=== PATIENT | female | born 1965 | race Caucasian/White ===

== ENCOUNTER 2025-01-19 08:14 | Outpatient (AMB) | payer OTHER, SELFPAY ==
--- OUTSIDE RECORDS SUMMARY | 2025-01-19 09:19 | XMS_ITS | Encounter Summary ---
Author Organization [facility] Address [address] [place] [id number] Care Team Providers Care Supervisor [employer] Name Role Phone Micky Hernandez Primary Care Provider [phone] Wilmar Blackman MD Unavailable [phone] Encounter Details Date Type Department Care Team (Late st Contact Info) Description 05/21/2024 Scanned Document Orthopedic [address] [id number] Kira Villanueva [address] [place] [address] Social History Tobacco Use Types Packs/Day Years Used Date Smoking Tobacco: Never Assessed AUDIT-C Answer Date Recorded Q1: How often do you have a drink containing alcohol? Never 05/25/2024 Q2: How many drinks containi ng alcohol do you have on a typical day when you are drinking? Patient does not drink Q3: How often do you have si x or more drinks on one occasion? Never 05/25/2024 Comments Unknown Sex and Gender Information Value Date Recorded Sex Assigned at Female 05/28/2024 8:34 AM EST Legal Sex Female 11:29 AM EDT Gender Identity Female 02/17/2024 11:31 AM EDT Sexual Orientation Heterosexual (straight) 06/18 8:36 AM EST documented as of this encounter Plan of Treatment Upcoming Encounters Date Type Department Care Team (Late st Contact Info) Description 01/25/2025 1:00 PM EDT [facility] [address] [place], [place] [address] Brandy Taylor, OMID [address] [address] documented as of this encounter Visit Diagnoses Not on filedocumented in this encounter Care Teams Supervisor [employer] Relationship Specialty Start Date End Date Micky Hernandez [facility] [address] [place] [address] PCP - General Internal Medicine 05/06/24 Wilmar Blackman MD [address] [place] [address] [address] [place] [address] Surgery, Orthopedic 05/25/24 [facility] [address] [place] [address] Primary Care Provider 03/02/24 documented as of this encounter
--- OUTSIDE RECORDS SUMMARY | 2025-01-19 09:19 | XMS_ITS ---
Author Name [facility] Unknown Results Test Name/Text Value Interpretation Date Range Source POC Glucose 83.0 mg/dL Normal 06/18/2024 65 - 99 [facility] Result Not Detected Normal 05/29/2024 - [facility] Hgb A1c MFr Bld 4.7 % Normal 05/29/2024 - 5.[address] Est. average glucose Bld gHb Est-mCnc 88.0 mg/dL Normal 05/29/2024 [facility] Chloride SerPl-sCnc 104.0 mmol/L Normal 05/29/2024 98 - 1 07 [facility] Calcium SerPl-mCnc 9.7 mg/dL Normal 05/29/2024 8.7 - 10.5 [facility] Sodium SerPl-sCnc 140.0 mmol/L Normal 05/29/2024 136 - 14 5 [facility] CO2 SerPl-sCnc 25.0 mmol/L Normal 05/29/2024 22 - 33 HH CCT BUN SerPl-mCnc 10.0 mg/dL Normal 05/29/2024 8 - [address] Creat SerPl-mCnc 0.7 mg/dL Normal 05/29/2024 0.4 - 1.1 HH CCT BUN/Creat SerPl 14.0 Ratio Normal 05/29/2024 10 - 25 HH CCT Anion Gap Bld-sCnc 11.0 Normal 05/29/2024 7 - 17 [facility] Glucose SerPl-mCnc 86.0 mg/dL Normal 05/29/2024 65 - 99 [facility] GFR/BSA.pred SerPlBld WSQ-MBT-NeATqc >90.0 Normal 05/29/2024 59 - [facility] Potassium SerPl-sCnc 4.2 mmol/L Normal 05/29/2024 3.4 - 5 .3 [facility] Transferrin SerPl-mCnc 239.0 mg/dL Normal 05/29/2024 200 - 360 [facility] Prealb SerPl-mCnc 21.0 mg/dL Normal 05/29/2024 20 - 40 [facility] Platelet num Bld Auto 208.0 Thou/uL Normal 05/29/2024 150 - 450 [facility] MCH RBC Qn Auto 29.6 pg Normal 05/29/2024 27 - [address] Lymphocytes/leuk NFr Bld Auto 22.8 % Normal 05/29/2024 [facility] Imm Granulocytes num Bld Auto 0.03 Thou/uL Normal 05/29/2024 0 - 0.1 [facility] Hgb Bld-mCnc 11.5 g/dL Below low normal 05/29/2024 11.7 - 15 .7 [facility] PMV Bld Auto 12.9 fL Above high normal 05/29/2024 7.5 - 12 .5 [facility] RDW RBC Auto-Rto 12.4 % Normal 05/29/2024 11.5 - 14.5 [facility] Eosinophil/leuk NFr Bld Auto 1.5 % Normal 05/29/2024 [facility] Immature Platelet Fraction 12.0 % Above high normal 05/29/2024 1.2 - 8.6 [facility] WBC num Bld Auto 8.7 Thou/uL Normal 05/29/2024 4 - 11 [facility] Basophils/leuk NFr Bld Auto 1.1 % Normal 05/29/2024 [facility] Basophils num Bld Auto 0.1 Thou/uL Normal 05/29/2024 0 - 0.2 [facility] Neutrophils/leuk NFr Bld Auto 66.5 % Normal 05/29/2024 [facility] MCHC RBC Auto-mCnc 33.4 g/dL Normal 05/29/2024 30 - 36 [facility] MCV RBC Auto 88.0 fL Normal 05/29/2024 80 - 100 [facility] Neutrophils num Bld Auto 5.8 Thou/uL Normal 05/29/2024 2 - 7.5 [facility] Hct VFr Bld Auto 34.4 % Below low normal 05/29/2024 35 - 47 [facility] Eosinophil num Bld Auto 0.13 Thou/uL Normal 05/29/2024 0 - 0.7 [facility] Imm Granulocytes/leuk NFr Bld Auto 0.3 % Normal 05/29/2024 [facility] Monocytes/leuk NFr Bld Auto 7.8 % Normal 05/29/2024 [facility] RBC num Bld Auto 3.89 Mil/uL Below low normal 05/29/2024 4 - 5.4 [facility] Monocytes num Bld Auto 0.68 Thou/uL Normal 05/29/2024 0.2 - 1.5 [facility] Lymphocytes num Bld Auto 1.99 Thou/uL Normal 05/29/2024 1.5 - 4.5 [facility] History of Medication Use Medication Directions Dispensed Refills Start Date End Date [facility] acetaminophen (TYLENOL) 500 MG tablet Take 1 tablet (500 mg total) by mouth 4 times daily (every 6 hours) as needed for mild pain or moderate pain. 12/27/2024 active oxyCODONE (ROXICODONE) 5 MG immediate release tablet Take 1 tablet (5 mg total) by mouth 4 times daily (every 6 hours) as needed for severe pain. Max Daily Amount: 20 mg 12/27/2024 active acetaminophen (TYLENOL) 325 MG tablet Take 3 tablets (975 mg total) by mouth every 6 (six) hours. 06/19/2024 active aspirin enteric coated (ECOTRIN LOW STRENGTH) 81 MG EC tablet Take 1 tablet (81 mg total) by mouth 2 (two) times a day. No other aspirin products while in use. Resume aspirin products after completion. 06/19/2024 active meloxicam (MOBIC) 15 MG tablet Take 1 tablet (15 mg total) by mouth daily. 06/19/2024 active methocarbamol (ROBAXIN) 750 MG tablet Take 1 tablet (750 mg total) by mouth 4 (four) times a day as needed for muscle spasms. 06/19/2024 active oxyCODONE (ROXICODONE) 5 MG immediate release tablet Take 1-2 tablets (5-10 mg total) by mouth every 4 (four) hours as needed for moderate pain or severe pain. Max Daily Amount: 60 mg 06/19/2024 active PANTOprazole (PROTONIX) 40 MG EC tablet Take 1 tablet (40 mg total) by mouth every morning before breakfast. 06/19/2024 active polyethylene glycol (miraLAx) 17 g packet Take 1 packet (17 g total) by mouth daily as needed for constipation. 06/19/2024 active senna-docusate (SENNA-S) 8.6-50 MG Take 1 tablet by mouth daily. 06/19/2024 active estradiol (ESTRACE) 2 MG tablet Take 1 mg by mouth daily. 04/28/2024 active Semaglutide-Weight Management 2.4 MG/0.75ML Solution Auto-injector Inject 2.4 mg under the skin once a week. Saturdays04/12/2024 active diphenhydrAMINE (BENADRYL) 25 MG tablet Take 1 tablet (25 mg total) by mouth 4 times daily (every 6 hours) as needed for itching. active FLUoxetine (PROzac) 20 MG capsule Take 1 capsule (20 mg total) by mouth every evening. At 4 pm active valsartan (DIOVAN) 160 MG tablet Take 1 tablet (160 mg total) by mouth every morning. active Allergies Allergen Reaction Severity Comment Documented Date Source Statu s [facility] 05/28/2024 [facility] active AVOCADO ANGIOEDEMA [facility] PROANTHOCYANIDIN ITCHING [facility] Problems Problem Status Onset Date Problem Type Date of Resolution Source Anemia active ProblemAct CCT Morbid obesity active 2024-05-28 ProblemAct [facility] Sleep apnea active 2022-05-12 ProblemAct [facility] Osteoarthritis active 2024-06-18 ProblemAct [facility] CT Cavovarus deformity of foot active EncounterDiagnosisAct [facility] Hypertension active ProblemAct [facility] Encounters Encounter Type Encounter Reason Primary Diagnosis Location Date Ambulatory Pain [facility]25 Ambulatory MODIFY Congenital talip es calcaneovarus, unspecified foot [facility] [place] 01/03/2025 Amb[facility]07[facility]2024 [facility] 12/07/2024 Ambulatory Other acquired deformities of unspecified foot Other acquired deformities of unspecified foot [facility] 12[facility]07/2024 Amb[facility] 10/05/2024 Ambulatory Other acquired deformities of unspecified foot Other acquired deformities of unspecified foot [facility] 10/05/2024 Ambulatory [facility] 08/24/2024 Ambulatory Other acquired deformities of unspecified foot Other acquired deformities of unspecified foot [facility]24[facility]24 [facility] 07/27/2024 Ambulatory Other acquired deformities of unspecified foot Other acquired deformities of unspecified foot [facility] 07/27/2024 Ambulatory Other acquired deformities of unspecified foot Other acquired deformities of unspecified foot [facility] 07/15/2024 Ambulatory [facility] 07/06/2024 Ambulatory Other acquired deformities of unspecified foot Other acquired deformities of unspecified foot [facility] 07/06/2024 Ambulatory Other acquired deformities of unspecified foot Other acquired deformities of unspecified foot [facility] 06/22/2024 Ambulatory Congenital talipes calcaneovarus, unspecified foot Congenital talipes calcaneovarus, unspecified foot [facility] 06/18/2024 Ambulatory Encounter for other preprocedural examination Encounter for other preprocedural examination [facility] 05/28/2024 Ambulatory [facility] 04/27/2024 Ambulatory Pain in right foot Pain in right foot [facility] 04/27/2024 Ambulatory Pain in right foot Pain in right foot [facility] 03/02/2024 Care Team Organization Name Specialty Phone Email Start Date End Da te [facility] 12/08/2024 [facility] 10/05/2024 [facility] Micky Schulz [facility] 05/21/2024 [facility] 03/05/2024 [facility] NO PCP Primary Care 03/03/2024 [facility] Primary Care 03/02/2024 [facility] Primary Care 03/02/2024 [facility] 02/17/2024
--- OUTSIDE RECORDS SUMMARY | 2025-01-19 09:19 | XMS_ITS | Patient Health Record ---
Author Organization [facility] Address [address] [place] [address] Care Team Providers Care Cable Armorer Operator Name Role Phone Micky Hernandez MD Primary Care Provider Eliza Cleveland Unavailable [phone] Allergies Allergen (clinical drug ingredient) Drug/Non Drug Allergy documented on EMR Reaction Allergy Type Onset Date Status Shrimp Flavor Unknown Drug Allergy Act [facility] Adhesive Unknown Allergy Active Reason For Referral No Information Medications Medication SIG (Take, Route, Fr equency, Duration) Notes Start Date End Date Status amLODIPine Besylate Active Physical Therapy . . B/L equinus, pes c avus, difficulty walking 2-3x/week 02/16/2024 Act k[facility] Fluoxetine Active Social History Tobacco Use: Social History Observation Description Date Details (start date - stop date) Former Smoker NA - NA Tobacco Use/Smoking Question Answer Notes Are you a: former smoker Additional Findings: Tobacco Non-User Current no n-smoker Alcohol Screen Question Answer Notes Did you have a drink containing alcohol in the p ast year? No Points 0 Interpretation Negative Tobacco use other than smoking: Question Answer Notes Are you an other tobacco user? 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) (2254366065301120 1) Congenital pes cavus, right foot (Q66.71) Active confirmed Problem Congenital pes cavus of left foot (disorder) (6160571780204122 7) Congenital pes cavus, left foot (Q66.72) Active confirmed Problem Spasm (50310273) Gastrocnemius equinus of left lower extremity (M62.462) Active confirmed Problem Tightness of right gastrocnemius muscle (finding) (4890824255396319 6) Gastrocnemius equinus of right lower extremity (M62.461) Active confirmed Vital Signs Height 5 ft 1 in in 02/16/2024 Weight 225 lbs 02/16/2024 BMI 42.51 kg/m2 02/16/2024 Encounters Encounter Location Date Provider Diagnosis [address] [address] 02/16/2024 Eliza Leone Pain in left foot M79.672 ; Congenital pes cavus, right foot Q66.71 ; Pain in left ankle and joints of left foot M25.572 ; Bursitis of intermetatarsal bursa of left foot M77.52 ; Metatarsalgia of left foot M77.42 ; Pain in right foot M79.671 ; Pain in right ankle and joints of right foot M25.571 ; Bursitis of intermetatarsal bursa of right foot M77.51 ; Metatarsalgia, right foot M77.41 ; Congenital pes cavus, left foot Q66.72 ; Gastrocnemius equinus of right lower extremity M62.461 and Gastrocnemius equinus of left lower extremity M62.462 [facility] [address] [place] [address] 02/16/2024 Eliza Leone Assessments Encounter Date Diagnosis (ICD Code) Assessment Notes Treatment Notes Treatment Clinical Notes Section Notes 02/16/2024 Pain in left foot (ICD-10 - M79.672) 02/16/2024 Congenital pes cavus, right foot (ICD-10 - Q66.71) 02/16/2024 Pain in left ankle and joints of left foot (ICD-10 - M25.572) 02/16/2024 Bursitis of intermetatarsal bursa of left foot (ICD-10 - M77.52) 02/16/2024 Metatarsalgia of left foot (ICD-10 - M77.42) 02/16/2024 Pain in right foot (ICD-10 - M79.671) 02/16/2024 Pain in right ankle and joints of right foot (ICD-10 - M25.571) 02/16/2024 Bursitis of intermetatarsal bursa of right foot (ICD-10 - M77.51) 02/16/2024 Metatarsalgia, right foot (ICD-10 - M77.41) 02/16/2024 Congenital pes cavus, left foot (ICD-10 - Q66.72) 02/16/2024 Gastrocnemius equinus of right lower extremity (ICD-10 - M62.461) 02/16/2024 Gastrocnemius equinus of left lower extremity (ICD-10 - M62.462) Plan Of Treatment Pending Test Test Name Order Date X ray : Foot, left 3V 02/16/2024 X ray : Foot, right 3V 02/16/2024 Insurance Providers Payer Name Payer Address Payer Phone Subscriber Number Group Number Insured Name Patient Relationship to Insured Coverage Start Date Coverage End Date [facility] [address] [place] [address] [phone] [id number] Kait Oglesby Self - patient is the insured Medical (General) History Medical History History ICD Code Anxiety Hypertension Surgical History Surgery Date(Month/Year) hammer toe 1995 feet tendon 2001
--- OUTSIDE RECORDS SUMMARY | 2025-01-19 09:19 | XMS_ITS | Encounter Summary ---
Author Organization [facility] Address [address] [place] [address] Care Team Providers Care Core Man Name Role Phone MaryMicky Primary Care Provider [phone] Wilmar Blackman MD Unavailable [phone] Encounter Details Date Type Department Care Team (Late st Contact Info) Description 01/03/2025 Scanned Document [facility] [place] [address] Wilmar Blackman MD [address] [place] [address] Social History Tobacco Use Types Packs/Day Years Used Date Smoking Tobacco: Never Smokeless Tobacco: Never Alcohol Use Standard Drinks/Week Comments Never 0 (1 standard drink = 0.6 oz pur e alcohol) AUDIT-C Answer Date Recorded Q1: How often [...] 1:00 PM EDT [facility] [address] [address] Brandy aTylor APRN [address] [address] documented as of this encounter Visit Diagnoses Not on filedocumented in this encounter Care Teams Core Man Relationship Specialty Start Date End Date Micky Hernandez [phone] [address] PCP - General Internal Medicine 05/06/24 Wilmar Blackman MD [address] [address] Surgery, Orthopedic 05/25/24 [facility] [address] [place] [address] Primary Care Provider 03/02/24 documented as of this encounter
--- OUTSIDE RECORDS SUMMARY | 2025-01-19 09:19 | XMS_ITS | Clinical Summary ---
Author Organization [facility] Address [address] [place] [address] Care Team Providers Care Waterworks Chief Engineer Name Role Phone Micky Hernandez Primary Care Provider [phone] Wimlar Blackman MD Unavailable [phone] Allergies Active Allergy Reactions Criticality Noted Date Comments Avocado Angioedema High 05/28/2024 Proanthocyanidin Itching Low 05/28/2024 Kiwi Itching Low 05/28/2024 Nuts Angioedema High 05/28/2024 Oranges Itching Low 05/28/2024 Shrimp Itching Low 05/28/2024 Strawberries Itching Low 05/28/2024 Medications estradiol (ESTRACE) 2 MG tablet Take 1 mg by mouth daily. 04/28/20 24 Active FLUoxetine (PROzac) 20 MG capsule Take 1 capsule (20 mg total) by mouth every evening. At 4 pm Active Semaglutide-We ight Management 2.4 MG/0.75ML Solution Auto-injector Inject 2.4 mg under the skin once a week. Saturdays04/12/20 24 Active valsartan (DIOVAN) 160 MG tablet Take 1 tablet (160 mg total) by mouth every morning. Active diphenhydrAMIN E (BENADRYL) 25 MG tablet Take 1 tablet (25 mg total) by mouth 4 times daily (every 6 hours) as needed for itching. Active methocarbamol (ROBAXIN) 750 MG tabletIndicati ons:Cavovarus deformity of foot Take 1 tablet (750 mg total) by mouth 4 (four) times a day as needed for muscle spasms. 25 tablet 06/19/19 25 Active polyethylene glycol (miraLAx) 17 g packetIndicati ons:Cavovarus deformity of foot Take 1 packet (17 g total) by mouth daily as needed for constipation. 06/19/19 25 Active PANTOprazole (PROTONIX) 40 MG EC tabletIndicati ons:Cavovarus deformity of foot Take 1 tablet (40 mg total) by mouth every morning before breakfast. 14 tablet 06/19/19 25 Active senna-docusate (SENNA-S) 8.6-50 MGIndications: Cavovarus deformity of foot Take 1 tablet by mouth daily. 06/19/19 25 Active meloxicam (MOBIC) 15 MG tabletIndicati ons:Cavovarus deformity of foot Take 1 tablet (15 mg total) by mouth daily. 21 tablet 1 10/06/19 25 Active acetaminophen (TYLENOL) 500 MG tabletIndicati ons:Cavovarus deformity of foot Take 1 tablet (500 mg total) by mouth 4 times daily (every 6 hours) as needed for mild pain or moderate pain. 84 tablet 12/28/19 25 Active aspirin enteric coated (ECOTRIN LOW STRENGTH) 81 MG EC tabletIndicati ons:Cavovarus deformity of foot Take 1 tablet (81 mg total) by mouth 2 times a day. With Food Post op 42 tablet 12/28/19 25 Active oxyCODONE (ROXICODONE) 5 MG immediate release tabletIndicati ons:Cavovarus deformity of foot Take 1 tablet (5 mg total) by mouth 4 times daily (every 6 hours) as needed for severe pain. Max Daily Amount: 20 mg 28 tablet 12/28/19 25 Active acetaminophen (TYLENOL) 325 MG tabletIndicati ons:Cavovarus deformity of foot Take 3 tablets (975 mg total) by mouth every 6 (six) hours. 168 tablet 06/19/19 25 025 Discontinued aspirin enteric coated (ECOTRIN LOW STRENGTH) 81 MG EC tabletIndicati ons:Cavovarus deformity of foot Take 1 tablet (81 mg total) by mouth 2 (two) times a day. No other aspirin products while in use. Resume aspirin products after completion. 42 tablet 06/19/19 25 025 Discontinued oxyCODONE (ROXICODONE) 5 MG immediate release tabletIndicati ons:Cavovarus deformity of foot Take 1-2 tablets (5-10 mg total) by mouth every 4 (four) hours as needed for moderate pain or severe pain. Max Daily Amount: 60 mg 45 tablet 06/19/19 25 025 Discontinued Active Problems Problem Noted Date Diagnosed Date Osteoarthritis 06/18/2024 Morbid obesity 05/28/2024 Assessment & Plan (05/28/2024 1:06 PM EST): BMI 40. Patient takes Semaglutide on DAY. Instructions for preoperative clear liquid diet given. Sleep apnea 05/12/2022 Overview (05/28/2024): cpap compliant Assessment & Plan (05/28/2024 1:04 PM EST): ? CPAP Cavovarus deformity of foot Overview (05/28/2024): right Hypertension Assessment & Plan (05/28/2024 1:04 PM EST): ? Controlled. Patient instructed to hold valsartan the day of surgery. Anemia Overview (05/28/2024): used to take iron, not since 2020 Assessment & Plan (05/28/2024 1:04 PM EST): JANA? Details? Encounters Date Type Department Care Team Description 01/11/2025 2:00 PM EDT Office Visit [facility] [address] [id number] Wilmar Blackman MD Cavovarus deformity of foot (Primary Dx) 01/03/2025 Scanned Document [facility] [address] [address] Wilmar Blackman MD 12/27/2024 Orders Only [facility] [address] [id number] Brandy Taylor APRN Cavovarus deformity of foot (Primary Dx) 12/07/2024 2:05 PM EDT Ancillary Procedure [facility] [address] [address] 12/07/2024 1:15 PM EDT Ancillary Procedure [facility] [address] [address] 12/07/2024 1:00 PM EDT Office Visit [facility] [address] [address] Wilmar Blackman MD Cavus deformity of foot, acquired (Primary Dx); Right ankle pain, unspecified chronicity 12/07/2024 CC Surg Order [facility] [address] [address] Wilmar Blackman MD Pain due to bone fixation device, initial encounter (Primary Dx); Cavovarus deformity of foot from Last 3 Months Social History Tobacco Use Types Packs/Day Years Used Date Smoking Tobacco: Never Smokeless Tobacco: Never Tobacco Cessation:Counseling Given: Not Answered Alcohol Use Standard Drinks/Week Comments Never 0 [...] Orientation Heterosexual (straight) 06/18 8:36 AM EST Last Filed Vital Signs Vital Sign Reading Time Taken Comments Blood Pressure 135/66 06/19/2024 1:15 PM EST Pulse 85 06/19/2024 1:15 PM EST Temperature 35.9 C (96.6 F) 06/19/2024 1:15 PM EST Respiratory Rate 16 06/19/2024 1:15 PM EST Oxygen Saturation 96% 06/19/2024 1:15 PM EST Inhaled Oxygen Concentration - - Weight 96.2 kg (212 lb) 06/18/2024 6:45 PM EST Height 157.5 cm (5' 2 ) 06/18/2024 6:45 PM EST Body Mass Index 38.78 06/18/2024 6:45 PM EST Plan of Treatment Upcoming Encounters Date Type Department Care Team (Late st Contact Info) Description 01/25/2025 1:00 PM EDT [facility] Visit [facility] [address] [place] [address] Brandy Taylor, OMID [facility] [address] [place] [address] Health Maintenance Due Date Last Done Comments Hepatitis C Virus Screening 1965 HIV Screening 11/15/1980 DTaP/Tdap/Td Vaccines (1 - Tdap) 11/15/1986 Hepatitis B Vaccines (1 of 3 - 19+ 3-dose series) 11/15/1986 Pap Smear (Ages 21-65) 11/15/1988 Mammogram 2007 Colonoscopy 11/15/2012 Pneumococcal Vaccines 50+ (1 of 1 - PCV) 11/15/2017 Zoster (Shingles) Vaccine (1 of 2) 11/15/2017 Influenza Vaccine 12/10/2024 03/20/2023, , 03/05/2022, Additional history exists COVID-19 Vaccine (2024-2 6 season) 2025 08/29/2021, 04/03/2021, 09/22/2020, Additional history exists Medical Devices Implanted Type Area Lease Administration Supervisor Device Identifier Shelf Expiration Date Model / Serial / Lot [id number] Filler Bone Void 5cc Dbx Algrf Putty Frzdr - [id number] Implanted:Qty: 1 on 06/18/2024 by Wilmar Blackman MD at [facility] Void Filler Right: Foot [employer] 01/15/2026 [id number] / [id number] / [id number] 7.4x75mm Headless Comp Implanted:Qty: 1 on 06/18/2024 by Wilmar Blackman MD at [facility] Right: Foot [employer] 06/12/2029-0 75S / / [id number] 7.4 X 80mm Screw Implanted:Qty: 1 on 06/18/2024 by Wilmar Blackman MD at [facility] Right: Foot [employer] 02/09/2029 [id number] 80S / / [id number] 5.6 X30mm Headless Screw Implanted:Qty: 1 on 06/18/2024 by Wilmar Blackman MD at [facility] Right: Foot [employer] 12/11/2027 F1-1656-0 30S / / [id number] 5.6 X42mm Headless Screw Implanted:Qty: 1 on 06/18/2024 by Wilmar Blackman MD at [facility] Right: Foot [employer] 01/10/2029 F1-1656-0 42S / / [id number] Compresion Staple 15x15 Implanted:Qty: 1 on 06/18/2024 by Wilmar Blackman MD at [facility] Right: Foot [employer] 05/12/2030 [id number] / / [id number] Procedures Procedure Name Priority Date/Time Associated Diagnosis Comments XR ANKLE 2 VIEWS-RIGHT Routine 12/07/2024 2:10 PM EDT Right ankle pain, unspecified chronicity XR FOOT 3+ VIEWS-RIGHT Routine 12/07/2024 1:41 PM EDT Cavus deformity of foot, acquired from Last 3 Months Results * XR Ankle 2 views-Right (12/07/2024 2:10 PM EDT) Narrative OA - 12/07/2024 2:10 PM EDT This exam was performed in office at [facility] and images reviewed by orthopedic provider. Any findings are documented within ambulatory encounter note on date of service. Wilmar Blackman MD IMG DIAGNOSTIC IMAGING ORDERA BLES Final Result OA * XR Foot 3+ views-Right (12/07/2024 1:41 PM EDT) Narrative [facility] - 12/07/2024 1:42 PM EDT This exam was performed in office at [facility] and images reviewed by orthopedic provider. Any findings are documented within ambulatory encounter note on date of service. Wilmar Blackman MD IMG DIAGNOSTIC IMAGING ORDERA BLES Final Result OA from Last 3 Months Insurance [facility] Advance Directives * Full Code (Latest Code Status on File) Date Activated Date Inactivated Comments 06/18/2024 6:31 PM * Full Code Date Activated Date Inactivated Comments 06/18/2024 8:47 AM 06/18/2024 6:31 PM Care Teams Waterworks Chief Engineer Relationship Specialty Start Date End Date Micky Hernandez [address] [address] PCP - General Internal Medicine 05/06/24 Wilmar Blackman MD [address] [place] [id number] Surgery, Orthopedic 05/25/24 [facility] [address] [place] [address] Primary Care Provider 03/02/24
--- OUTSIDE RECORDS SUMMARY | 2025-01-19 09:19 | XMS_ITS | Continuity of Care Document ---
Author Organization [facility] Address [address] [place] [id number] Insurance Providers Payer Plan Claims Address Claims Phone Policy Number Group Number Relation Employer Guarantor Name Guarantor Guarantor Address Guarant[place] [address] [id number] Self lamberto hammonds 1965 [address] [place] [address] [facility]in Blancas [facility], [address], [place] [address] tel:[phone] [id number] Self lamberto hammonds 1965 [address] [place] [address] Problems Condition ICD9 code ICD10 code SNOMED code Start Date End Date S tatus Encounter for screening for other metabolic disorders Z13.228 Results No Results Allergies, adverse reactions, alerts No known allergies and adverse reactions Medications No administered medications reported Vital Signs No vital signs reported Social History No smoking Hx information available
--- OUTSIDE RECORDS SUMMARY | 2025-01-19 09:19 | XMS_ITS | Encounter Summary ---
Author Organization [facility] Address [address] [place] [address] Care Team Providers Care Ccie Name Role Phone Pcp, No Primary Care Provider Unavailabl e Micky Hernandez Primary Care Provider [phone] Wilmar Blackman MD Unavailable [phone] Encounter Details Date Type Department Care Team (Late st Contact Info) Description 03/10/2024 [place] [address] Wilmar Blackman MD [address] [place] [address] Social History Tobacco Use Types Packs/Day Years Used Date Smoking Tobacco: Never Assessed Comments Unknown Sex and Gender Information Value [...] 01/25/2025 1:00 PM EDT [place] [address] Brandy Taylor APRN [address] [address] documented as of this encounter Visit Diagnoses Not on filedocumented in this encounter Care Teams Ccie Relationship Specialty Start Date End Date Pcp, No PCP - General General Medicine 03/02/24 05/05/24 Micky Hernandez [address] [facility] [address] [place] [address] PCP - General Internal Medicine 05/06/24 Wilmar Blackman MD [address] [place] [address] [place] [address] Surgery, Orthopedic 05/25/24 [facility] [address] [place] [address] Primary Care Provider 03/02/24 documented as of this encounter
--- NOTE | 2025-01-19 10:47 | A.OFFVIS_ITS ---
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*: Details: Start time: 10.40am, End time: 11.18am ?I spent 33 minutes speaking with the patient on the phone plus an additional 5 minutes reviewing and updating records for a total of 38 minutes HPI Comments Details: Previous weight loss efforts: Wegovy for 6months to 2.4mg: lost 10 lbs Wakes up: 7am, Sleeps: 11pm Breakfast: skips Lunch: 12pm (plantains, rice, pasta) Dinner: 6pm (as lunch, soups, salads) Snacks: 8pm (chocolate) Exercise: has home treadmill that tracks calories Beverages: Coffee: (2 cups/d with cream), Tea: <1/wk, Soda: none, Juice: Cranberry juice occasionally, ETOH: none PFSH Medical History (Updated 01/19/25 @ 10:51 by Eamon Howard MD) Anxiety Depression Sleep apnea treated with continuous positive airway pressure (CPAP) Hypertension Morbid obesity Surgical History (Updated 11/02/24 @ 13:36 by Gillian Moore CMA) Hx of bladder repair surgery Hx of foot surgery Family History (Updated 11/02/24 @ 13:37 by Gillian Moore CMA) Mother Diabetes Hypertension Kidney problem Asthma Father No problems noted. Son No problems noted. Son No problems noted. Daughter Hypertension Social History (Updated 11/02/24 @ 13:37 by Gillian Moore CMA) Alcohol intake: never Patient Tobacco Use Status: Never used Tobacco Telehealth Telehealth Telehealth Platform: Telephone Location of provider rendering services: practice address Location of patient: address on file Patient Identification confirmed using: Name, : Yes Telehealth method: voice only Patient verbally consented to treatment: Yes Patient verbally consented to billing insurance company: Yes Patient informed of any privacy concerns related to visit: Yes Minutes spent on Phone/Video with Pt.: 38 Assessment & Plan Assessment & Plan (1) Morbid obesity: Code(s): E66.01 - Morbid (severe) obesity due to excess calories Category: Medical Plan: 1.? Plan for lap sleeve gastrectomy. If diaphragmatic or ventral hernias are present at time of surgery, these will be repaired laparoscopically as well. I emphasized the importance of close follow-up, adherence to instructions and good communication. The surgery does not replace the need to change your lifestlyle which is the cause of the obesity problem. The surgery provides the motivation to try again to change your lifestyle, it reduces the appetite and make the transition to a better lifestyle easier and doubles the amount of weight you would lose compared to doing the lifestyle change without the surgery. You will need to be on a liquid diet with protein shakes for 2 weeks before surgery to maximize weight loss and boost your nutritional status to recover better from surgery and also for the first two weeks after surgery to let the stomach heal before we introduce other foods. After the first 2 weeks we will introduce protein bars and soft foods like scrambled eggs, cottage cheese and yogurt and after the 6th week will introduce meat, fish and cooked vegetables in small amounts. Over time you should be able to eat everything in small amounts. Side effects like nausea, vomiting, heartburn or abdominal pain are not common in the practice unless you are not following in the practice. This operation requires lifetime commitment to following in our practice and communication with me. You will much less weight and experience side effects if you don?t communicate or not following in the practice. Complications are rare and in our practice is about 1/10 of the national average. However, you can develop bleeding that may require transfusion (hasn?t happened for year in the practice), you may from complications (we did not have any deaths in the practice) and infections. Infections are usually a result of breakdown in communication or not understanding or following directions correctly. They are difficult to treat, they can happen during the first 6 weeks, they may require to be in the hospital for weeks or even months, not being able to eat by mouth and you may have drains and surgeries to try and correct the issue. Other risks and complications include possible conversion to an open procedure, leaks, small bowel obstruction, blood clots, cardiac, or pulmonary complications, as residential complications such as ulcers, insufficient weight loss and vitamin deficiencies. 2. Nutritional counseling. Start with one premade PREMIER protein (buy at [employer] or [employer]) shake (mix 4oz of Premier mixed with 4oz low fat unsweetened almond milk each) at 8am-10am, one protein bar (Fit Crunch protein bar, buy at [employer], or [employer]) at 11am-1pm, another premade PREMIER protein shake (mix 4oz of Premier mixed with 4oz low fat unsweetened almond milk each) at 2pm-4pm, dinner at 5pm (8 forks of protein and 8 forks of salad/vegetables) and one more another [employer]unch protein bar at 7pm-9pm. So you do 2 protein shakes, 2 protein bars and one meal per day. Meal to include lean meat (beef, fish, pork, turkey, chicken), or azeri yogurt, or egg whites, or beans with a salad with olive oil and fruits (berries, pears, apples, kiwi). Avoid salt, breads, potatoes, rice, pasta, desserts. 3. Each shake would be drunk slowly, like coffee in a period of 2 hours. 4. Cut each bar in 4 pieces and eat each piece in 30min ?to make each bar last 2 hours. 5. I emphasized the importance of measuring accurately the food portion and measure it when serving the food in plate 6. The meal portions include 8 full-size forks of meat and 8 full-size forks of salad. You always eat the meat portion but you can replace up to 4 forks for salad/vegetables with rice, potatoes or pasta, or a fruit ?if you like. The less you do it the better weight loss will be. 7. One full-size fork is what it can be scooped on the fork without falling aside and not what can be bit with the fork. Use regular forks like those you find in a typical restaurant. 8.? Please buy the body composition scale we discussed and send me weight measurements as soon as possible and then once a week. Always include your diet and exercise plan. 9. Start treadmill at speed of 3.0 and do erickson for 300 calories. Goal is to burn 2000 calories per week on exercise, which means either 300 calories daily. 10. Goal is to lose at least 1.5-2lbs per week 11. Goal to lose 10% of your weight before surgery, which is about 23lbs. Ultimate weight goal: 200lbs before surgery 12. Please follow the diet plan exactly without any change. If you don't like something about the plan or you feel hungry you need to communicate with me so I can help you revise the plan. You should not change the plan yourself 13. To be scheduled for EGD to assess the stomach's anatomy. The possibility of biopsies was discussed. Patient needs to avoid use of NSAIDs and aspirin for 1 week prior to EGD. You must be on liquids only the day before your endoscopy. Risks of perforation and bleeding was discussed with the patient. This will be an outpatient procedure with IV sedation. Orders: Orders Hemoglobin A1c Today E66.01 - Morbid (severe) obesity due to excess calories, G47.30 - Sleep apnea, unspecified, I10 - Essential (primary) hypertension H Pylori Breath Test Today E66.01 - Morbid (severe) obesity due to excess calories, G47.30 - Sleep apnea, unspecified, I10 - Essential (primary) hypertension IRON PROFILE Today E66.01 - Morbid (severe) obesity due to excess calories, G47.30 - Sleep apnea, unspecified, I10 - Essential (primary) hypertension Vitamin B12 and Folate Today E66.01 - Morbid (severe) obesity due to excess calories, G47.30 - Sleep apnea, unspecified, I10 - Essential (primary) hypertension Zinc Today E66.01 - Morbid (severe) obesity due to excess calories, G47.30 - Sleep apnea, unspecified, I10 - Essential (primary) hypertension C Reactive Protein Today E66.01 - Morbid (severe) obesity due to excess calories, G47.30 - Sleep apnea, unspecified, I10 - Essential (primary) hypertension Vitamin A Today E66.01 - Morbid (severe) obesity due to excess calories, G47.30 - Sleep apnea, unspecified, I10 - Essential (primary) hypertension TSH reflex Free T4 Today E66.01 - Morbid (severe) obesity due to excess calories, G47.30 - Sleep apnea, unspecified, I10 - Essential (primary) hypertension Vitamin D 25-OH Total Today E66.01 - Morbid (severe) obesity due to excess calories, G47.30 - Sleep apnea, unspecified, I10 - Essential (primary) hypert ension US abdomen comp w elastography Today E66.01 - Morbid (severe) obesity due to excess calories, G47.30 - Sleep apnea, unspecified, I10 - Essential (primary) hypertension XR chest 2V Today E66.01 - Morbid (severe) obesity due to excess calories, G47.30 - Sleep apnea, unspecified, I10 - Essential (primary) hypertension Insulin Today E66.01 - Morbid (severe) obesity due to excess calories, G47.30 - Sleep apnea, unspecified, I10 - Essential (primary) hypertension Complete Blood Count Auto Diff Today E66.01 - Morbid (severe) obesity due to excess calories, G47.30 - Sleep apnea, unspecified, I10 - Essential (primary) hypertension Lipid Panel Today E66.01 - Morbid (severe) obesity due to excess calories, G47.30 - Sleep apnea, unspecified, I10 - Essential (primary) hypertension Comprehensive Met. Panel Today E66.01 - Morbid (severe) obesity due to excess calories, G47.30 - Sleep apnea, unspecified, I10 - Essential (primary) hypertension Vitamin B1 Today E66.01 - Morbid (severe) obesity due to excess calories, G47.30 - Sleep apnea, unspecified, I10 - Essential (primary) hypertension Ferritin Today E66.01 - Morbid (severe) obesity due to excess calories, G47.30 - Sleep apnea, unspecified, I10 - Essential (primary) hypertension ECG 12 lead EKG Today E66.01 - Morbid (severe) obesity due to excess calories, G47.30 - Sleep apnea, unspecified, I10 - Essential (primary) hypertension FL upper GI w air Today E66.01 - Morbid (severe) obesity due to excess calories, G47.30 - Sleep apnea, unspecified, I10 - Essential (primary) hypertension Referrals Nutrition/Dietitian Referral E66.01 - Morbid (severe) obesity due to excess calories, G47.30 - Sleep apnea, unspecified, I10 - Essential (primary) hypertension Behavioral Health Referral E66.01 - Morbid (severe) obesity due to excess calories, G47.30 - Sleep apnea, unspecified, I10 - Essential (primary) hypertension
[2025-01-19 10:55] VITALS: BMI 42.2
== END 2025-01-19 11:19 | disposition home or self-care (01) ==
LOC: HO.HBS 08:14
PROVIDERS: PCP Internal Medicine; Visit Provider Surgery
DX: E66.01 Morbid (severe) obesity due to excess calories (principal)
CPT/HCPCS: 99203

== ENCOUNTER 2025-01-21 08:53 | Outpatient (REF) | payer OTHER, SELFPAY ==
--- NOTE | ~2025-01-21 | XR_ITS ---
EXAMINATION: XR CHEST CLINICAL INFORMATION: E66.01 - Morbid (severe) obesity due to excess calories COMPARISON: None available. TECHNIQUE: 2 views of the chest were obtained. FINDINGS: No significant abnormality is noted involving the heart, lungs, mediastinum, bony thorax or soft tissues. Heart size is at the upper limits. XR/XR chest 2V IMPRESSION: No acute disease. Electronically signed by: Tino Garcia MD 01/21/2025 09:36 AM EDT
--- NOTE | 2025-01-21 08:59 | ECG_ITS ---
Test Reason : E66.01 - Morbid (severe) obesity due to excess calories Blood Pressure : */* mmHG Vent. Rate : 66 BPM Atrial Rate : 66 BPM P-R Int : 144 ms QRS Dur : 102 ms QT Int : 414 ms P-R-T Axes : 41 45 43 degrees QTcB Int : 434 ms Normal sinus rhythm Incomplete right bundle branch block Nonspecific T wave abnormality Abnormal ECG No previous ECGs available Referred By: Eamon Howard Electronically Signed By: TALA IBARRA MD
[2025-01-21 09:13] LABS: MANUAL DIFF FLAG NO
[2025-01-21 09:39] LABS: Hematocrit 32.0 % (37.0-47.0); Hemoglobin 10.8 g/dl (12.0-16.0); Imm Gran Abs Auto 0.04 X10*3/uL (0.00-0.03); Imm Gran Pct Auto 0.6 % (0.0-0.4); Lymphocytes Absolute Auto 2.4 X10*3/uL (1.2-4.9); Mean Corpuscular HGB Conc 33.8 g/dl (31.0-35.0); Mean Corpuscular Hemoglobin 29.4 pg (27.0-33.0); Mean Corpuscular Volume 87.2 fL (80.0-98.0); NRBC Abs Auto 0.000 X10*3/uL (0.0-0.012); NRBC Pct Auto 0.0 /100WBC (0.0-0.2); Platelet Count 207 X10*3/uL (160-400); Red Blood Count 3.67 X10*6/uL (4.20-5.50); White Blood Count 7.1 X10*3/uL (4.8-10.8)
--- OUTSIDE RECORDS SUMMARY | 2025-01-21 09:44 | XMS_ITS | Clinical Summary ---
Author Organization [facility] Address [address] [place] [address] Care Team Providers Care Natural Sciences Professor Name Role Phone Micky Hernandez Primary Care Provider [phone] Wilmar Blackman MD Unavailable [phone] Allergies Active Allergy Reactions Criticality Noted [...] 2:00 PM EDT [facility] Visit [facility] [address] 7[address] Wilmar Blackman MD Cavovarus deformity of foot (Primary Dx) 01/03/2025 Scanned Document [facility] [address] [address] Wilmar Blackman MD 12/27/2024 Orders Only [facility] [address] [id number] Brandy Taylor APRN Cavovarus deformity of foot (Primary Dx) 12/07/2024 2:05 PM EDT Ancillary Procedure [facility] [address] [address] 12/07/2024 1:15 PM EDT Ancillary Procedure [facility] [address] [address] 12/07/2024 1:00 PM EDT [facility] Visit [facility] [address] [address] Wilmar Blackman MD Cavus deformity of foot, acquired (Primary Dx); Right ankle pain, unspecified chronicity 12/07/2024 CC Surg Order [facility] [address] [address] Wilmar Blackman MD Pain due to bone [...] PM EDT [facility] Visit [facility] [address] [place] [address] Brandy Taylor, OMID [facility] [address] [place] [address] Health Maintenance Due Date Last Done Comments [...] history exists Medical Devices Implanted Type Area Railroad Surveyor Device Identifier Shelf Expiration Date Model / Serial / Lot [id number] Filler Bone Void 5cc Dbx Algrf Putty Frzdr - [id number] Implanted:Qty: 1 on 06/18/2024 by Wilmar Blackman MD at [facility] Void Filler Right: Foot [employer] 01/15/2026 [id number] / [id number] / [id number] 7.4x75mm Headless Comp Implanted:Qty: 1 on 06/18/2024 by Wilmar Blackman MD at [facility] Right: Foot [employer] 06/12/2029-0 75S / / [id number] 7.4 X 80mm Screw Implanted:Qty: 1 on 06/18/2024 by Wilmar Blackman MD at [facility] Right: Foot [employer] 02/09/2029 F1-1974-0 80S / / [id number] 5.6 X30mm Headless Screw Implanted:Qty: 1 on 06/18/2024 by Wilmar Blackman MD at [facility] Right: Foot [employer] 12/11/2027 F1-1656-0 30S / / [id number] 5.6 X42mm Headless Screw Implanted:Qty: 1 on 06/18/2024 by Wilmar Blackman MD at [facility] Right: Foot [employer] 01/10/2029 F1-1656-0 42S / / [id number] Compresion Staple 15x15 Implanted:Qty: 1 on 06/18/2024 by Wilmar Blackman MD at [facility] Right: Foot [employer] 05/12/2030 [id number] / / [id number] Procedures Procedure Name Priority Date/Time Associated Diagnosis [...] performed in office at [facility] and images reviewed by orthopedic provider. Any findings are documented within ambulatory encounter note on date of service. Wilmar Blackman MD IMG DIAGNOSTIC IMAGING ORDERA BLES Final Result OA * XR Foot 3+ views-Right (12/07/2024 1:41 PM EDT) Narrative [facility] - 12/07/2024 1:42 PM EDT This exam was performed in office at [facility] and images reviewed by orthopedic provider. Any findings are documented within ambulatory encounter note on date of service. Wilmar Blackman MD IMG DIAGNOSTIC IMAGING ORDERA BLES Final Result OA from Last 3 Months Insurance [facility] Advance Directives * Full Code (Latest Code Status on File) Date Activated Date Inactivated Comments 06/18/2024 6:31 PM * Full Code Date Activated Date Inactivated Comments 06/18/2024 8:47 AM 06/18/2024 6:31 PM Care Teams Natural Sciences Professor Relationship Specialty Start Date End Date Micky Hernandez [address] [address] PCP - General Internal Medicine 05/06/24 Wilmar Blackman MD [address] [place] [address] Surgery, Orthopedic 05/25/24 [facility] [address] [place] [address] Primary Care Provider 03/02/24
--- OUTSIDE RECORDS SUMMARY | 2025-01-21 09:44 | XMS_ITS | Encounter Summary ---
Author Organization [facility] Address [address] [place] [address] Care Team Providers Care Wine Fermenter Name Role Phone Micky Hernandez Primary Care Provider [phone] Wilmar Blackman MD Unavailable [phone] Encounter Details Date Type Department Care Team (Late st Contact Info) Description 05/21/2024 Scanned Document [facility] [address] [id number] Kira Villanueva [address] [place] [address] Social History Tobacco Use Types Packs/Day Years [...] 1:00 PM EDT [facility] Visit [facility] [address] [place], [place] [address] Brandy Taylor, OMID [address] [address] documented as of this encounter Visit Diagnoses Not on filedocumented in this encounter Care Teams Wine Fermenter Relationship Specialty Start Date End Date Micky Hernandez [facility] 2 [place] [address] PCP - General Internal Medicine 05/06/24 Wilmar Blackman MD [address] [place] [address] 100 [place] [address] Surgery, Orthopedic 05/25/24 [facility] [address] [place] [address] Primary Care Provider 03/02/24 documented as of this encounter
--- OUTSIDE RECORDS SUMMARY | 2025-01-21 09:44 | XMS_ITS | Encounter Summary ---
Author Organization [facility] Address [address] [place] [address] Care Team Providers Care Stockroom Clerk Name Role Phone Pcp, No Primary Care Provider Unavailabl e Micky Hernandez Primary Care Provider [phone] Wilmar Blackman MD Unavailable [phone] Encounter Details Date Type Department Care Team (Late st Contact Info) Description 03/10/2024 [place] [address] Wilmar Blackman MD [address] [place] [address] Social History Tobacco Use Types Packs/Day Years [...] 01/25/2025 1:00 PM ED[place] [address] Brandy Taylor APRN [address] [address] documented as of this encounter Visit Diagnoses Not on filedocumented in this encounter Care Teams Stockroom Clerk Relationship Specialty Start Date End Date Pcp, No PCP - General General Medicine 03/02/24 05/05/24 Micky Hernandez [address] [facility] 2 [place] [address] PCP - General Internal Medicine 05/06/24 Wilmar Blackman MD [address] [place] [address] [place] [address] Surgery, Orthopedic 05/25/24 [facility] [address] [place] [address] Primary Care Provider 03/02/24 documented as of this encounter
--- OUTSIDE RECORDS SUMMARY | 2025-01-21 09:44 | XMS_ITS | Patient Health Record ---
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) Active confirmed Problem Congenital pes cavus of left foot (disorder) (2578985250477621 7) Congenital pes cavus, left foot (Q66.72) Active confirmed Problem Spasm (71468278) Gastrocnemius equinus of left lower extremity (M62.462) Active confirmed Problem Tightness of right gastrocnemius muscle (finding) (8601834063640637 6) Gastrocnemius equinus of right lower extremity (M62.461) Active confirmed Vital Signs Height 5 ft 1 in in 02/16/2024 Weight 225 lbs 02/16/2024 BMI 42.51 kg/m2 02/16/2024 Encounters Encounter Location Date Provider Diagnosis [address] [phone] 02/16/2024 Eliza Leone Pain in left foot [...] Gastrocnemius equinus of left lower extremity M62.462 [facility] [address] [place] [address] 02/16/2024 Eliza Leone Assessments Encounter Date Diagnosis [...] Insured Coverage Start Date Coverage End Date [facility] [address] [place] [address] [id number] Kait Oglesby Self - patient is the insured Medical (General) History Medical History History ICD Code Anxiety Hypertension Surgical History Surgery Date(Month/Year) hammer toe 1995 feet tendon 2001
--- OUTSIDE RECORDS SUMMARY | 2025-01-21 09:44 | XMS_ITS | Continuity of Care Document ---
Author Organization [facility] Address [address] [place] [address] Insurance Providers Payer Plan Claims Address Claims Phone Policy Number Group Number Relation Employer Guarantor Name Guarantor Guarantor Address [place] [address] [id number] Self lamberto hammonds 1965 [address] [place] [address] [facility]in Blancas [facility], [address], [place] [address] [phone] [id number] Self lamberto hammonds 1965 [address] [place] [address] Problems Condition ICD9 code ICD10 code SNOMED code Start Date End Date S tatus Encounter for screening for other metabolic disorders Z13.228 Results No Results Allergies, adverse reactions, alerts No known allergies and adverse reactions Medications No administered medications reported Vital Signs No vital signs reported Social History No smoking Hx information available
--- OUTSIDE RECORDS SUMMARY | 2025-01-21 09:44 | XMS_ITS | Encounter Summary ---
Author Organization [facility] Address [address] [place] [address] Care Team Providers Care Dry House Wheeler Name Role Phone MaryMicky Primary Care Provider [phone] Wilmar lBackman MD Unavailable [phone] Encounter Details Date Type Department Care Team (Late st Contact Info) Description 01/03/2025 Scanned Document [facility] [place] [address] Wilmar Blackman MD [address] [place] [address] Social History Tobacco Use Types Packs/Day Years [...] PM EDT Office Visit [facility] [address] [address] Brandy Taylor APRN [address] [address] documented as of this encounter Visit Diagnoses Not on filedocumented in this encounter Care Teams Dry House Wheeler Relationship Specialty Start Date End Date Micky Hernandez [address] [address] PCP - General Internal Medicine 05/06/24 Wilmar Blackman MD [address] [address] Surgery, Orthopedic 05/25/24 [facility] [address] [place] [address] Primary Care Provider 03/02/24 documented as of this encounter
[2025-01-21 10:22] LABS: Alanine Aminotransferase 16 U/L (0-31); Albumin Level 4.0 g/dL (3.5-5.0); Alkaline Phosphatase 98 U/L (39-117); Anion Gap 12 (12-20); Aspartate Amino Transferase 17 U/L (5-31); Blood Urea Nitrogen 17 mg/dL (9-16); Calcium 8.5 mg/dL (8.4-10.2); Carbon Dioxide 23 mmol/L (22-29); Chloride 108 mmol/L (96-108); Cholesterol 216 mg/dL (<200); Estimated Glomerular Filt Rate > 60; HDL Cholesterol 75 mg/dL (>40); Hemoglobin A1C 121.3927 umol/L; Iron 86 mcg/dL (30-160); Percent Iron Saturation 26 % (15-50); Potassium 3.3 mmol/L (3.3-5.1); Sodium 140 mmol/L (135-145); Total Hemoglobin (HGBA1C) 2972.1221 umol/L; Total Iron Binding Capacity 330 mcg/dL (228-428); Total Protein 6.8 g/dL (6.5-8.0); Triglycerides 111 mg/dL (<150); Unsaturated Iron Binding 244 ug/dL
[2025-01-21 10:41] LABS: Ferritin 41 ng/mL (10-250)
[2025-01-21 10:46] LABS: Folate 8.6 ng/mL (> or = 4.0); Vitamin B12 481 pg/mL (200-900)
[2025-01-21 14:11] LABS: Free T4 (Free Thyroxine) 1.07 ng/dL (0.71-1.85)
== END 2025-01-21 08:54 | disposition home or self-care (01) ==
LOC: HO.XRAY 08:53
PROVIDERS: Visit Provider Surgery
DX: E66.01 Morbid (severe) obesity due to excess calories (principal); I10 Essential (primary) hypertension; G47.30 Sleep apnea, unspecified; Z13.1 Encounter for screening for diabetes mellitus
CPT/HCPCS: 36415; 71046; 80053; 80061; 82306; 82607; 82728; 82746; 83036; 83525; 83540; 84439; 84443; 84630; 85025; 86140; 93005

== ENCOUNTER → 2025-01-21 08:59 | Outpatient (BNV) | payer OTHER, SELFPAY | PROVIDERS: Visit Provider Internal Medicine Cardiovascular Disease | DX: I45.10 Unspecified right bundle-branch block (principal) | CPT/HCPCS: 93010 ==

== ENCOUNTER → 2025-01-21 09:20 | Outpatient (BNV) | payer OTHER, SELFPAY | PROVIDERS: Visit Provider Radiology Diagnostic Radiology | DX: E66.01 Morbid (severe) obesity due to excess calories (principal) | CPT/HCPCS: 71046 ==

== ENCOUNTER 2025-02-14 10:27 | Day surgery (SDC) | payer OTHER, SELFPAY ==
[2025-02-10 11:53] VITALS: BMI 42.1
--- NOTE | 2025-02-10 14:25 | HO.ANESPROP2 ---
Documented by User: Shruthi Mark NP 02/10/25 14:27 HPI - Anesthesia Eval Consult details Narrative: 59yo F for Upper Endoscopy PMFSH Active Problems Active Problems: All Active Problems Zinc deficiency (Acute) Hypokalemia (Acute) Vitamin B12 deficiency (Acute) Anxiety (Acute) Depression (Acute) Sleep apnea treated with continuous positive airway pressure (CPAP) (Acute) Hypertension (Acute) Morbid obesity (Acute) Past Medical History Medical History (Updated 01/29/25 @ 14:46 by Eamon Howard MD) Hypokalemia Vitamin B12 deficiency Anxiety Depression Sleep apnea treated with continuous positive airway pressure (CPAP) Hypertension Morbid obesity Family History Family History (Updated 11/02/24 @ 13:37 by Gillian Moore CMA) Mother Diabetes Hypertension Kidney problem Asthma Father No problems noted. Son No problems noted. Son No problems noted. Daughter Hypertension Surgical History Surgical History (Updated 11/02/24 @ 13:36 by Gillian Moore CMA) Hx of bladder repair surgery Hx of foot surgery Social History Social History (Updated 11/02/24 @ 13:37 by Gillian Moore CMA) Alcohol intake: never Patient Tobacco Use Status: Never used Tobacco Advance Directives: No Advance Directives Information Provided: Yes Meds Allergies Allergy/AdvReac Type Severity Reaction Status Date / Time No Known Allergies Allergy Verified 01/19/25 10:47 Home Medications ?Medication ?Instructions ?Recorded ?Confirmed ?Last Taken ?Type estradiol 1 mg tablet 0.5 mg PO DAILY 11/03/24 01/19/25 Unknown History fluoxetine 20 mg capsule 20 mg PO DAILY 11/03/24 01/19/25 Unknown History meloxicam 15 mg tablet 15 mg PO DAILY 11/03/24 Unknown History valsartan 160 mg tablet 160 mg PO DAILY 11/03/24 01/19/25 Unknown History Exam Height,Weight and Vital Signs: Height 5 ft 1 in Weight 101.151 kg Assessment and Plan Assessment Anesthesia Assessment: Chart Reviewed Documented by User: Zoila Osorio MD 02/14/25 11:01 [facility] Past Medical History Medical History (Updated 01/29/25 @ 14:46 by Eamon Howard MD) Hypokalemia Vitamin B12 deficiency Anxiety Depression Sleep apnea treated with continuous positive airway pressure (CPAP) Hypertension Morbid obesity Family History Family History (Updated 11/02/24 @ 13:37 by Gillian Moore CMA) Mother Diabetes Hypertension Kidney problem Asthma Father No problems noted. Son No problems noted. Son No problems noted. Daughter Hypertension Family history of problems with anesthesia: No Surgical History Surgical History (Updated 11/02/24 @ 13:36 by Gillian Moore CMA) Hx of bladder repair surgery Hx of foot surgery History of Problems with Anesthesia: No Social History Social History (Updated 11/02/24 @ 13:37 by Gillian Moore CMA) Alcohol intake: never Patient Tobacco Use Status: Never used Tobacco Advance Directives: No Advance Directives Information Provided: Yes Meds Allergies Allergy/AdvReac Type Severity Reaction Status Date / Time No Known Allergies Allergy Verified 01/19/25 10:47 Home Medications ?Medication ?Instructions ?Recorded ?Confirmed ?Last Taken ?Type estradiol 1 mg tablet 0.5 mg PO DAILY 11/03/24 01/19/25 Unknown History fluoxetine 20 mg capsule 20 mg PO DAILY 11/03/24 01/19/25 Unknown History meloxicam 15 mg tablet 15 mg PO DAILY 11/03/24 Unknown History valsartan 160 mg tablet 160 mg PO DAILY 11/03/24 01/19/25 Unknown History Exam Airway Mallampati Class: II (caps laterally) TM Dist: >3cm Neck ROM: Full Heart: rrr Lungs: cta Assessment and Plan Assessment Anesthesia Assessment: Anesthesia Plan Discussed Final Anesthetic Review Family History of Problems with Anesthesia: No History of Problems with Anesthesia: No NPO: Yes ASA Class: III Final Preanesthetic Review: No Changes in Pt Med Stat, Meds/Allgs Chart Reviewed and Consent Obtained/Reviewed Patient Risk: Intermediate Procedure Risk: Intermediate Anesthetic Plan Anesthetic Plan: MAC: Disposition: Standard PACU
[2025-02-14 10:53] VITALS: BP 151/84; PULSE 78; RESP 20; TEMP 36.9; O2SAT 97; BMI 43.0
[2025-02-14] MEDS: Lactated Ringers 1,000 ML 100 ML IVCONT (11:18)
--- NOTE | 2025-02-14 12:29 | MHC.SHP ---
Pre-Procedural Eval Section A - 24 Hr Update-Section A only Date of Service: 02/14/25 The patient is an INPATIENT: No The patient has been examined within 24 hours of the surgical procedure. The History & Physical has been completed within 30 days and I have reviewed it.: Yes Section B - Complete if H&P > 30 days Chief Complaint: Morbid (severe) obesity due to excess calories Relevant Family History (Specify if Yes): No Relevant Social History: None Present Medications: None Medical History: No relevant PMH History of Previous Operations: No relevant previous surgery Allergies: Allergies Allergy/AdvReac Type Severity Reaction Status Date / Time No Known Allergies Allergy Verified 01/19/25 10:47 Review of Systems Sugical H&P ROS: Negative: Constitution, Cardiovascular, Respiratory, Neurological, Psychiatric, Hem-Onc, Allergic/Immunologic, Gastrointestinal, Genitourinary, Musculoskeletal, Integumentary, Endocrine and Eyes/Ears/Nose/Throat Exam Surgical H&P Exam: Normal: HEENT, Normal: Heart, Normal: Lungs, Normal: Extremities, Normal: Abdomen, Normal: Skin and Normal: Neurological Plan Diagnosis/Plan: Unchanged (EGD to assess the stomach's anatomy. Risks of bleeding and perforation were discussed with the patient and she is in agreement with the plan.) I have reviewed the history and physical and performed a pertinent physical examination on my patient. No changes have occurred unless specified. Time Spent With Patient Time: Total time managing care of this patient today ____ minutes.
--- NOTE | 2025-02-14 12:32 | PM.OP ---
Brief Operative Note Date of Service: 02/14/25 Pre-op diagnosis: Morbid obesity Post-op diagnosis: same Procedure: PROCEDURE DATE: 02/14/2025 PREOPERATIVE DIAGNOSIS: Morbid obesity POSTOPERATIVE DIAGNOSIS: ?Same as above. Small diaphragmatic hernia PROCEDURE: Mrijobkf-lrgqww-ujrwrtrtyaai with biopsies Surgeon: Isabella Howard M.D.. Ph.D. Core Microarchitect: None ? Anesthesia: IV sedation Estimated blood loss: ?Minimal FINDINGS AND PROCEDURE: ? OPERATIVE INDICATIONS: ?The patient is a 59 year old female known to me who is interested in bariatric surgery. Based on this information I recommended an upper endoscopy to evaluate the patient's symptoms. Risks and complications of the surgery were discussed with the patient in advance particularly the possibility of perforation or bleeding that may require surgical intervention. The patient understood the risks and was in agreement with the plan. ? PROCEDURE: After informed consent was obtained by the patient, the patient was ?transferred to the Operating Room and was placed in the supine position.? After successful induction of IV sedation, a mouth block was inserted and the patient was placed in the left lateral decubitus position. An upper endoscopy was performed next, the oropharynx and esophagus appeared within the normal limits. There was a 1-2cm reducuble hiatal hernia. The z-line was smooth. Two biopsies were obtained from the distal esophagus 2-3 cm proximal to the GE junction and two additional biopsies from the GE junction. The stomach was entered and it appeared to be of normal size. There was no gastritis. There was no stricture or ulcer. A biopsy was obtained from the gastric fundus and the antrum. No significant bleeding was noted from any of the biopsy sites. Retroflexion of the scope confirmed the presence of a normal GE junction. The scope was then advanced into the duodenum which appeared to be normal as well. At that point the duodenum ?and the stomach were decompressed and the scope was withdrawn from the patient's mouth. The patient extubated and was transferred in stable condition to the Recovery Room for further care. I was present and performed all steps of the procedure. There were no residents to assist with this case. Juan Howard M.D., Ph.D. Surgeon: Eamon Howard MD Anesthesia: MAC Was an Core Microarchitect used for this Procedure?: No Estimated blood loss (mL): 0 IV fluids (mL): 400 Urine output (mL): 0 (No Shaikh to record output) Pathology: other (1) antrum x1, 2) fundus x1, 3) GE junction x2, 4) distal esophagus x2) Condition: stable Disposition: PACU
[2025-02-14 13:10] VITALS: BP 114/61; PULSE 70; RESP 16; TEMP 36.2; O2SAT 97
[2025-02-14 13:25] VITALS: BP 110/59; PULSE 64; RESP 18; TEMP 36.2; O2SAT 98
== END 2025-02-14 13:53 | disposition home or self-care (01) ==
PROVIDERS: Visit Provider Surgery
PROC: 0DJ08ZZ Inspection of Upper Intestinal Tract, Via Natural or Artificial Opening Endoscopic (ICD-10-PCS; CPT 43235; principal; 2025-02-14 12:10)
DX: E66.01 Morbid (severe) obesity due to excess calories (principal); Z68.41 Body mass index [BMI] 40.0-44.9, adult; I10 Essential (primary) hypertension; K44.9 Diaphragmatic hernia without obstruction or gangrene; G47.30 Sleep apnea, unspecified; F32.A Depression, unspecified; F41.9 Anxiety disorder, unspecified; Z79.899 Other long term (current) drug therapy; Z99.89 Dependence on other enabling machines and devices; Z98.890 Other specified postprocedural states
CPT/HCPCS: 43239; 88305; 88313; 88342; J2704

== ENCOUNTER → 2025-02-14 10:27 | Outpatient (BNV) | payer OTHER, SELFPAY | PROVIDERS: Visit Provider Surgery | DX: E66.01 Morbid (severe) obesity due to excess calories (principal); Z68.41 Body mass index [BMI] 40.0-44.9, adult; K44.9 Diaphragmatic hernia without obstruction or gangrene | CPT/HCPCS: 43239 ==

== ENCOUNTER 2025-02-24 12:15 | Outpatient (AMB) | payer OTHER, SELFPAY ==
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
--- OUTSIDE RECORDS SUMMARY | 2025-02-24 15:27 | XMS_ITS | Encounter Summary ---
Author Organization Formerly [facility] Address [address] [place] [address] Care Team Providers Care Gas Transfer Operator Name Role Phone Pcp, Miesha Primary Care Provider Unavailabl e Mciky Hernandez Primary Care Provider [phone] Wilmar Blackman MD Unavailable [phone] Encounter Details Date Type Department Care Team ([facility] st Contact Info) Description 03/10/2024 Scanned Document [place] [address] Wilmar Blackman MD [address] [place] [address] Social History Tobacco Use Types Packs/Day Years Used Date Smoking Tobacco: Never Assessed Comments Unknown Sex and Gender Information Value Date Recorded Sex Assigned at Female 05/28/2024 8:34 AM EST Legal Sex Female 11:29 AM EDT Gender Identity Female 02/17/2024 11:31 AM EDT Sexual Orientation Heterosexual (straight) 06/18 8:36 AM EST documented as of this encounter Plan of Treatment Not on file documented as of this encounter Visit Diagnoses Not on filedocumented in this encounter Care Teams Gas Transfer Operator Relationship Specialty Start Date End Date Pcp, Miesha PCP - General General Medicine 03/02/24 05/05/24 Micky Hernandez [address] [facility] [address] [place] [address] PCP - General Internal Medicine 05/06/24 Wilmar Blackman MD [address] [place] [address] Surgery, Orthopedic 05/25/24 [facility] [address] [place] [address] Primary Care Provider 03/02/24 documented as of this encounter
--- OUTSIDE RECORDS SUMMARY | 2025-02-24 15:27 | XMS_ITS | Patient Health Record ---
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) Active confirmed Problem Congenital pes cavus of left foot (disorder) (4310093018535034 7) Congenital pes cavus, left foot (Q66.72) Active confirmed Problem Tightness of left gastrocnemius muscle (finding) (6226438720141452 6) Gastrocnemius equinus of left lower extremity (M62.462) Active confirmed Problem Tightness of right gastrocnemius muscle (finding) (9001464302311370 6) Gastrocnemius equinus of right lower extremity (M62.461) Active confirmed Plan Of Treatment Pending Test Test Name Order Date X ray : Foot, left 3V 02/16/2024 X ray : Foot, right 3V 02/16/2024 Insurance Providers Payer Name Payer Address Payer Phone Subscriber Number Group Number Insured Name Patient Relationship to Insured Coverage Start Date Coverage End Date [facility] [address] [place] [address] [phone] [id number] Kait Oglesby Self - patient is the insured Medical (General) History Medical History History ICD Code Anxiety Hypertension Surgical History Surgery Date(Month/Year) hammer toe 1995 feet tendon 2001
--- OUTSIDE RECORDS SUMMARY | 2025-02-24 15:27 | XMS_ITS | Clinical Summary ---
Author Organization [facility] Address [address] [place] [address] Care Team Providers Care Application Services Manager Name Role Phone Micky Hernandez Primary Care Provider [phone] Wilmar Blackman MD Unavailable [phone] Allergies Active Allergy Reactions Criticality Noted Date Comments Avocado Angioedema High 05/28/2024 Proanthocyanidin Itching Low 05/28/2024 Kiwi Itching Low 05/28/2024 Nuts Angioedema High 05/28/2024 Oranges Itching Low 05/28/2024 Shrimp Itching Low 05/28/2024 Strawberries Itching Low 05/28/2024 Medications estradiol (ESTRACE) 2 MG tablet Take 1 mg by mouth daily. 4 Active FLUoxetine (PROzac) 20 MG capsule Take 1 capsule (20 mg total) by mouth every evening. At 4 pm Active Semaglutide-Braxton ght Management 2.4 MG/0.75ML Solution Auto-injector Inject 2.4 mg under the skin once a week. Saturdays 4 Active valsartan (DIOVAN) 160 MG tablet Take 1 tablet (160 mg total) by mouth every morning. Active diphenhydrAMINE (BENADRYL) 25 MG tablet Take 1 tablet (25 mg total) by mouth 4 times daily (every 6 hours) as needed for itching. Active methocarbamol (ROBAXIN) 750 MG tabletIndicatio ns:Cavovarus deformity of foot Take 1 tablet (750 mg total) by mouth 4 (four) times a day as needed for muscle spasms. 25 tablet 5 Active polyethylene glycol (miraLAx) 17 g packetIndicatio ns:Cavovarus deformity of foot Take 1 packet (17 g total) by mouth daily as needed for constipation. 5 Active PANTOprazole (PROTONIX) 40 MG EC tabletIndicatio ns:Cavovarus deformity of foot Take 1 tablet (40 mg total) by mouth every morning before breakfast. 14 tablet 5 Active senna-docusate (SENNA-S) 8.6-50 MGIndications:C avovarus deformity of foot Take 1 tablet by mouth daily. 5 Active meloxicam (MOBIC) 15 MG tabletIndicatio ns:Cavovarus deformity of foot Take 1 tablet (15 mg total) by mouth daily. 21 tablet 1 5 Active acetaminophen (TYLENOL) 500 MG tabletIndicatio ns:Cavovarus deformity of foot Take 1 tablet (500 mg total) by mouth 4 times daily (every 6 hours) as needed for mild pain or moderate pain. 84 tablet 5 Active aspirin enteric coated (ECOTRIN LOW STRENGTH) 81 MG EC tabletIndicatio ns:Cavovarus deformity of foot Take 1 tablet (81 mg total) by mouth 2 times a day. With Food Post op 42 tablet 5 Active oxyCODONE (ROXICODONE) 5 MG immediate release tabletIndicatio ns:Cavovarus deformity of foot Take 1 tablet (5 mg total) by mouth 4 times daily (every 6 hours) as needed for severe pain. Max Daily Amount: 20 mg 28 tablet 5 Active Active Problems Problem Noted Date Diagnosed Date [...] Encounters Date Type Department Care Team Description 01/25/2025 1:00 PM EDT [facility] Visit [facility] [address] [address] Brandy Taylor APRN Cavovarus deformity of foot (Primary Dx); Right foot pain 01/11/2025 2:00 PM EDT Office Visit [facility] [address] [address] Wilmar Blackman MD Cavovarus deformity of foot (Primary Dx) 01/03/2025 Scanned Document [facility] [address] [address] Wilmar Blackman MD 12/27/2024 Orders Only [facility] [address] [address] Brandy Taylor APRN Cavovarus deformity of foot (Primary Dx) 12/07/2024 2:05 PM EDT Ancillary Procedure [facility] [address] [address] 12/07/2024 1:15 PM EDT Ancillary Procedure [facility] [address] [address] 12/07/2024 1:00 PM EDT [facility] Visit [facility] [address] [address] Wilmar Blackman MD Cavus deformity of foot, acquired (Primary Dx); Right ankle pain, unspecified chronicity 12/07/2024 CC Surg Order [facility] [place] [id number] Wilmar Blackman MD Pain due to bone [...] 06/18/2024 6:45 PM EST Plan of Treatment Health Maintenance Due Date Last Done Comments Hepatitis C Virus Screening 1965 HIV Screening 11/15/1980 DTaP/Tdap/Td Vaccines (1 - Tdap) 11/15/1986 Hepatitis B Vaccines (1 of 3 - 19+ 3-dose series) 11/15/1986 Pap Smear (Ages 21-65) 11/15/1988 Mammogram 2007 Colonoscopy 11/15/2012 Pneumococcal Vaccines 50+ (1 of 1 - PCV) 11/15/2017 RSV Vaccine 50 years and old er and Patients (1 - Risk 50-74 years 1-dose series) 11/15/2017 Zoster (Shingles) Vaccine (1 of 2) 11/15/2017 Influenza Vaccine 12/10/2024 03/20/2023, , 03/05/2022, Additional history exists COVID-19 Vaccine (5 - 2024-2 6 season) 2025 08/29/2021, 04/03/2021, 09/22/2020, Additional history exists Medical Devices Implanted Type Area Director Of Primary Device Identifier Shelf Expiration Date Model / Serial / Lot [id number] Filler Bone Void 5cc Dbx Algrf Putty Frzdr - [id number] Implanted:Qty: 1 on 06/18/2024 by Wilmar Blackman MD at [facility] Void Filler Right: Foot [employer] 01/15/2026 [id number] / [id number] / [id number] 7.4x75mm Headless Comp Implanted:Qty: 1 on 06/18/2024 by Wilmar Blackman MD at [facility] Right: Foot [employer] 06/12/2029 F1-1974-0 75S / / [id number] 7.4 X 80mm Screw Implanted:Qty: 1 on 06/18/2024 by Wilmar Blackman MD at [facility] Right: Foot [employer] 02/09/2029 F1-1974-0 80S / / [id number] 5.6 X30mm Headless Screw Implanted:Qty: 1 on 06/18/2024 by Wilmar Blackman MD at [facility] Right: Foot [employer] 12/11/2027 F1-1656-0 30S / / [id number] 5.6 X42mm Headless Screw Implanted:Qty: 1 on 06/18/2024 by Wilmar Blackman MD at [facility] Right: Foot [employer] 01/10/2029 F1-1656-0 42S / / [id number] Compresion Staple 15x15 Implanted:Qty: 1 on 06/18/2024 by Wilmar Blackman MD at [facility] Right: Foot [employer] 05/12/2030 [id number] / / [id number] Procedures Procedure Name Priority Date/Time Associated Diagnosis Comments XR ANKLE 2 VIEWS-RIGHT Routine 12/07/2024 2:10 PM EDT Right ankle pain, unspecified chronicity XR FOOT 3+ VIEWS-RIGHT Routine 12/07/2024 1:41 PM EDT Cavus deformity of foot, acquired from Last 3 Months Results * XR Ankle 2 views-Right (12/07/2024 2:10 PM EDT) Narrative [facility] - 12/07/2024 2:10 PM EDT This exam was performed in office at [facility] and images reviewed by orthopedic provider. Any findings are documented within ambulatory encounter note on date of service. Wilmar Blackman MD [facility] ORDERA BLES Final Result Performing Organization Address [facility] de Phone Number OA * XR Foot 3+ views-Right (12/07/2024 1:41 PM EDT) Narrative [facility] - 12/07/2024 1:42 PM EDT This exam was performed in office at [facility] and images reviewed by orthopedic provider. Any findings are documented within ambulatory encounter note on date of service. Wilmar Blackman MD [facility] ORDERA BLES Final Result Performing Organization Address [facility] Co de Phone Number [facility] from Last 3 Months Insurance [facility] Advance Directives * Full Code (Latest Code Status on File) Date Activated Date Inactivated Comments 06/18/2024 6:31 PM * Full Code Date Activated Date Inactivated Comments 06/18/2024 8:47 AM 06/18/2024 6:31 PM Care Teams Application Services Manager Relationship Specialty Start Date End Date Micky Hernandez [address] [place] [address] PCP - General Internal Medicine 05/06/24 Wilmar Blackman MD [address] [place] [address] Surgery, Orthopedic 05/25/24 [facility] [address] [place] [address] Primary Care Provider 03/02/24
--- OUTSIDE RECORDS SUMMARY | 2025-02-24 15:27 | XMS_ITS | Encounter Summary ---
Author Organization [facility] Address [address] [place] [address] Care Team Providers Care Log Handling Equipment Operator Name Role Phone Micky Hernandez Primary Care Provider [phone] Wilmar Blackman MD Unavailable [phone] Encounter Details Date Type Department Care Team (Late st Contact Info) Description 05/21/2024 Scanned Document [facility] [address] [place], [place] [address] [address] [address] Social History Tobacco Use Types Packs/Day Years [...] on filedocumented in this encounter Care Teams Log Handling Equipment Operator Relationship Specialty Start Date End Date Micky Hernandez [address] [facility] [address] [place] [address] PCP - General Internal Medicine 05/06/24 Wilmar Blackman MD [address] [place] [address] Surgery, Orthopedic 05/25/24 [facility] [address] [place] [address] Primary Care Provider 03/02/24 documented as of this encounter
--- OUTSIDE RECORDS SUMMARY | 2025-02-24 15:27 | XMS_ITS | Encounter Summary ---
Author Organization [facility] Address [address] [place] [address] Care Team Providers Care Director Inbound Sales Name Role Phone Micky Hernandez Primary Care Provider [phone] Wilmar Blackman MD Unavailable [phone] Encounter Details Date Type Department Care Team ([facility] st Contact Info) Description 01/03/2025 Scanned [place] [address] Wilmar Blackman MD [address] [place] [address] Social History Tobacco Use Types Packs/Day Years [...] on filedocumented in this encounter Care Teams Director Inbound Sales Relationship Specialty Start Date End Date AdriánciscoMicky [address] [facility] [address] [place] [address] PCP - General Internal Medicine 05/06/24 Wilmar Blackman MD [address] [place] [address] Surgery, Orthopedic 05/25/24 [facility] [address] [place] [address] Primary Care Provider 03/02/24 documented as of this encounter
== END 2025-02-24 13:04 | disposition home or self-care (01) ==
LOC: HO.HBST 12:15
PROVIDERS: Visit Provider Counselor Mental Health
DX: F41.9 Anxiety disorder, unspecified (principal); Z71.89 Other specified counseling
CPT/HCPCS: 90791

== ENCOUNTER → 2025-03-07 10:10 | Outpatient (REF) | payer OTHER, SELFPAY ==
--- NOTE | 2025-03-07 10:14 | CA_ITS ---
Acquisition Time: 2025-03-07 11:13:29 Total Exercise Time: 00:05:00 Test Indications: Abnormal ECG,Pre-Op Evaluation Medications: FLUOXETINE MELOXICAM VALSARTAN Protocol: MAYDA Max HR: 151 BPM 92% of Pred: 163 BPM Max BP: 130/88 mmHG Max Work Load: 5.7 METS Exercise stress test with exercise 5 mins of Mayda Protocol at a reduced speed of 2.0mph due to right foot discomfort, achieving 88% MPHR, with reports of SOB, no chest pain, without any arrythmias, with normotensive response to exercise. EKGs difficult to interpret dueing exercise due to artifacts. with basleine nonspecific ST. In recovery, with no EKG changes meeting criteria for ischemia. In recovery, breathing returned to baseline. Echo images obtained by tech at rest and post peak exercise. Definity contrast utilized. Test reviewed with Dr. Vieira. PS- Pt very anxious throughout the test. Referred By: Eamon Howard Electronically Signed By: Kris Zavala
--- OUTSIDE RECORDS SUMMARY | 2025-03-07 12:15 | XMS_ITS | Encounter Summary ---
Author Organization [facility] Address [address] [place] [address] Care Team Providers Care Rent Collector Name Role Phone Pcp, Miesha Primary Care Provider Unavailabl e Micky Hernandez Primary Care Provider [phone] Wilmar Blackman MD Unavailable [phone] Encounter Details Date Type Department Care Team ([facility] st Contact Info) Description 03/10/2024 Scanned [place] [address] Wilmar Blackman MD [address] [place] [address] Social History Tobacco Use Types Packs/Day Years [...] on filedocumented in this encounter Care Teams Rent Collector Relationship Specialty Start Date End Date Pcp, Miesha PCP - General General Medicine 03/02/24 05/05/24 Micky Hernandez [address] [facility] 2 [place] [address] PCP - General Internal Medicine 05/06/24 Wilmar Blackman MD [address] [place] [address] Surgery, Orthopedic 05/25/24 [facility] [address] [place] [address] Primary Care Provider 03/02/24 documented as of this encounter
--- OUTSIDE RECORDS SUMMARY | 2025-03-07 12:15 | XMS_ITS | Encounter Summary ---
Author Organization [facility] Address [address] [place] [address] Care Team Providers Care Spout Liner Name Role Phone Micky Hernandez Primary Care Provider [phone] Wilmar Blackman MD Unavailable Encounter Details Date Type Department Care Team ([facility] st Contact Info) Description 01/03/2025 Scanned Document [facility] [address] Wilmar Blackman MD [address] [place] [address] Social History Tobacco Use Types Packs/Day Years [...] on filedocumented in this encounter Care Teams Spout Liner Relationship Specialty Start Date End Date AdriánciscoMicky [address] [facility] [address] [place] [address] PCP - General Internal Medicine 05/06/24 Wilmar Blackman MD [address] [place] [address] Surgery, Orthopedic 05/25/24 [facility] [address] [place] [address] Primary Care Provider 03/02/24 documented as of this encounter
--- OUTSIDE RECORDS SUMMARY | 2025-03-07 12:15 | XMS_ITS | Clinical Summary ---
Author Organization [facility] Address [address] [place] [address] Care Team Providers Care Hull Outfit Supervisor Name Role Phone Micky Hernandez Primary Care Provider Wilmar Blackman MD Unavailable [phone] Allergies Active Allergy Reactions Criticality Noted [...] PM EDT Office Visit [facility] [address] [address] Brandy Taylor APRN Cavovarus deformity of foot (Primary Dx); Right foot pain 01/11/2025 2:00 PM EDT Office Visit [facility] [address] [address] Wilmar Blackman MD Cavovarus deformity of foot (Primary Dx) 01/03/2025 Scanned Document [facility] [address] [address] Wilmar Blackman MD 12/27/2024 Orders Only [facility] [address] [address] Brandy Taylor APRN Cavovarus deformity of foot (Primary Dx) 12/07/2024 2:05 PM EDT Ancillary Procedure [facility] [address] [address] 12/07/2024 1:15 PM EDT Ancillary Procedure [facility] [address] [address] 12/07/2024 1:00 PM EDT Office Visit [facility] [address] [address] Wilmar Blackman MD Cavus deformity of foot, acquired (Primary Dx); Right ankle pain, unspecified chronicity 12/07/2024 CC Surg Order [facility] [place] [address] Wilmar Blackman MD Pain due to bone [...] history exists Medical Devices Implanted Type Area Senior Mechanical Project Manager Device Identifier Shelf Expiration Date Model / Serial / Lot [id number] Filler Bone Void 5cc Dbx Algrf Putty Frzdr - [id number] Implanted:Qty: 1 on 06/18/2024 by Wilmar Blackman MD at [facility] Void Filler Right: Foot [employer] 01/15/2026 [id number] / [id number] / [id number] 7.4x75mm Headless Comp Implanted:Qty: 1 on 06/18/2024 by Wilmar Blackman MD at [facility] Right: Foot [employer] 06/12/2029 F1-1974-0 75S / / [id number] 7.4 X 80mm Screw Implanted:Qty: 1 on 06/18/2024 by Wilmar Blackman MD at [facility] Right: Foot [employer] 02/09/2029 F1-1974-0 80S / / [id number] 5.6 X30mm Headless Screw Implanted:Qty: 1 on 06/18/2024 by Wilmar Blackman MD at [facility] Right: Foot [employer] 12/11/2027 F1-1656-0 30S / / [id number] 5.6 X42mm Headless Screw Implanted:Qty: 1 on 06/18/2024 by Wilmar Blackman MD at [facility] Right: Foot [employer] 01/10/2029 F1-1656-0 42S / / [id number] Compresion Staple 15x15 Implanted:Qty: 1 on 06/18/2024 by Wilmar Blackman MD at [facility] Right: Foot [employer] 05/12/2030 [id number] / / [id number] Procedures Procedure Name Priority Date/Time Associated Diagnosis Comments XR ANKLE 2 VIEWS-RIGHT Routine 12/07/2024 2:10 PM EDT Right ankle pain, unspecified chronicity XR FOOT 3+ VIEWS-RIGHT Routine 12/07/2024 1:41 PM EDT Cavus deformity of foot, acquired from Last 3 Months Results * XR Ankle 2 views-Right (12/07/2024 2:10 PM EDT) Narrative [facility] - 12/07/2024 2:10 PM EDT This exam was performed in office at [facility] and images reviewed by orthopedic provider. Any findings are documented within ambulatory encounter note on date of service. Wilmar Blackman MD [facility] ORDERA BLES Final Result Performing Organization Address [facility] de Phone Number OA * XR Foot 3+ views-Right (12/07/2024 1:41 PM EDT) Narrative [facility] - 12/07/2024 1:42 PM EDT This exam was performed in office at [facility] and images reviewed by orthopedic provider. Any findings are documented within ambulatory encounter note on date of service. Wilmar Blackman MD [facility] ORDERA BLES Final Result Performing Organization Address [facility] Co de Phone Number [facility] from Last 3 Months Insurance [facility] Advance Directives * Full Code (Latest Code Status on File) Date Activated Date Inactivated Comments 06/18/2024 6:31 PM * Full Code Date Activated Date Inactivated Comments 06/18/2024 8:47 AM 06/18/2024 6:31 PM Care Teams Hull Outfit Supervisor Relationship Specialty Start Date End Date Micky Hernandez [address] [place] [address] PCP - General Internal Medicine 05/06/24 Wilmar Blackman MD [address] [place] [address] Surgery, Orthopedic 05/25/24 [facility] [address] [place] [address] Primary Care Provider 03/02/24
--- OUTSIDE RECORDS SUMMARY | 2025-03-07 12:15 | XMS_ITS | Patient Health Record ---
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) Active confirmed Problem Congenital pes cavus of left foot (disorder) (2482047278802185 7) Congenital pes cavus, left foot (Q66.72) Active confirmed Problem Tightness of left gastrocnemius muscle (finding) (6233231955890873 6) Gastrocnemius equinus of left lower extremity (M62.462) Active confirmed Problem Tightness of right gastrocnemius muscle (finding) (2664724947773247 6) Gastrocnemius equinus of right lower extremity (M62.461) Active confirmed Plan Of Treatment Pending Test Test Name Order Date X ray : Foot, left 3V 02/16/2024 X ray : Foot, right 3V 02/16/2024 Insurance Providers Payer Name Payer Address Payer Phone Subscriber Number Group Number Insured Name Patient Relationship to Insured Coverage Start Date Coverage End Date [facility] [address] [place] [address] [id number] Kait Oglesby Self - patient is the insured Medical (General) History Medical History History ICD Code Anxiety Hypertension Surgical History Surgery Date(Month/Year) hammer toe 1995 feet tendon 2001
--- OUTSIDE RECORDS SUMMARY | 2025-03-07 12:15 | XMS_ITS | Encounter Summary ---
Author Organization [facility] Address [address] [place] [address] Care Team Providers Care Senior Licensing Manager Name Role Phone Micky Hernandez Primary Care Provider [phone] Wilmar Blackman MD Unavailable [phone] Encounter Details Date Type Department Care Team (Late st Contact Info) Description 05/21/2024 Scanned Document [facility] [address] [place], [place] [address] [address] [address] Social History Tobacco Use Types Packs/Day Years [...] on filedocumented in this encounter Care Teams Senior Licensing Manager Relationship Specialty Start Date End Date Micky Hernandez [address] [facility] [address] [place] [address] PCP - General Internal Medicine 05/06/24 Wilmar Blackman MD [address] [place] [address] Surgery, Orthopedic 05/25/24 [facility] [address] [place] [address] Primary Care Provider 03/02/24 documented as of this encounter
== END ==
LOC: HO.CARD 10:10
PROVIDERS: Visit Provider Surgery
DX: Z01.810 Encounter for preprocedural cardiovascular examination (principal); R94.31 Abnormal electrocardiogram [ECG] [EKG]
CPT/HCPCS: 93350; Q9957

== ENCOUNTER → 2025-03-07 10:14 | Outpatient (BNV) | payer OTHER, SELFPAY | DX: R06.02 Shortness of breath (principal) | CPT/HCPCS: 93016; 93018; 93350; 93352 ==